=== PATIENT | female | born 1970 | race Caucasian/White ===

== ENCOUNTER 2022-01-01 11:50 | Outpatient (REF) | payer OTHER, SELFPAY ==
--- NOTE | ~2022-01-01 | XR_ITS ---
EXAMINATION: XR HIP, RIGHT CLINICAL INFORMATION: Pain COMPARISON: None TECHNIQUE: Two views of the right hip and one view of the pelvis. FINDINGS: Bones and soft tissues are normal. No fracture. Alignment is anatomic. Hip joint space is maintained. XR/XR hip RT w [id number] IMPRESSION: Normal right hip.
== END 2022-01-01 11:51 | disposition home or self-care (01) ==
LOC: HO.HMGCLDS 11:50
PROVIDERS: Visit Provider Physician Assistant
DX: M25.551 Pain in right hip (principal)
CPT/HCPCS: 73502

== ENCOUNTER 2022-01-11 08:00 | Outpatient (RCR) | payer OTHER, SELFPAY ==
--- NOTE | 2022-01-02 13:08 | MHC.PT.EP ---
[facility] [place] [facility] [place] [facility] [place] [facility] [address] [phone] F: [phone] F: [phone] F: [phone] F: [phone] Physical Therapy Plan of Care Date of Evaluation: Date of Surgery: n/a Diagnosis: R hamstring injury. Assessment: Patient is a 51 year old R handed female who presents with s/s consistent with pain R hamstring pain. 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 Patient past medical history is unremarkable and non-contributory. Current impairments include pain, flexibility, ROM, strength, activity tolerance and functional mobility. Functional limitations include decreased ability to walk, transfer, stand, negotiate stairs, and travel. Patient is motivated with good rehab potential. Skilled PT will address impairments and functional limitations in order to achieve goals. Frequency and Duration: The patient will be seen 2x/week for 4 weeks Short Term Goals: I with HEP - 2 weeks Able to walk 10 minutes, no AD in 2 weeks TTP absent - 2 weeks Shaker Operator Goals: Restore PLOF - 4 weeks Hip and knee strength 4+/5 grossly - 4 weeks No pain with ADLs - 4 weeks Treatment Plan: Modalities to reduce pain, spasms and effusion. Manual therapy to restore motion and function. Therapeutic exercise to improve strength and flexibility. Neuromuscular re-education for posture and balance. Therapeutic activities to return to functional activities of daily living. Electronically signed by: Dane Carter, PT Please sign and return to therapist. Thank you for your referral.
--- NOTE | 2022-07-12 09:29 | MHC.PT.DC ---
[facility] [place] [facility] [place] [facility] [place] [facility] [address] [phone] F: [phone] F: [phone] F: [phone] F: [phone] Physical Therapy Discharge Report Diagnosis: R hamstring injury. Date of Surgery: n/a Date of Evaluation: 01/02/22 Date of Discharge: 02/12/22 Treatments to Date: 4 Cancellations to Date: No Shows to Date: Discharge Status: Improved Function Independent with HEP Discharge Summary: 01/11/22: pt progressing well with skilled PT. near normal gait pattern. Able to walk > 20 minutes. less discomfort getting in and out of car. leaving for [place] today and will report back upon return. 01/09/22: able to walk longer distances. less TTP. progressing in clinic and with HEP. continue to progress as tolerated. 01/05/22: progressed patient with standing ex. no adverse reactions. these were added to HEP as well. Patient is a 51 year old R handed female who presents with s/s consistent with pain R hamstring pain. 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 Patient past medical history is unremarkable and non-contributory. Current impairments include pain, flexibility, ROM, strength, activity tolerance and functional mobility. Functional limitations include decreased ability to walk, transfer, stand, negotiate stairs, and travel. Patient is motivated with good rehab potential. Skilled PT will address impairments and functional limitations in order to achieve goals. Electronically signed by: Dane Carter, PT Please sign and return to therapist. Thank you for your referral.
== END 2022-07-12 09:29 | disposition home or self-care (01) ==
LOC: HO.PTCHIC 08:00
PROVIDERS: PCP Nurse Practitioner Family; Visit Provider Physician Assistant
DX: S76.301D Unspecified injury of muscle, fascia and tendon of the posterior muscle group at thigh level, right thigh, subsequent encounter (principal); Z91.81 History of falling
CPT/HCPCS: 97110; 97140; 97161